=== PATIENT | male | born 1995 | race Caucasian/White ===

== ENCOUNTER 2021-09-24 21:55 | Emergency (ER) | payer OTHER ==
[~2021-09-24] VITALS: Ht 180.3 cm; Wt 88.6 kg
[2021-09-24 22:02] VITALS: BP 131/72
[2021-09-24] MEDS ORDERED: AMOX1TAB16 PO (22:46)
== END 2021-09-24 23:24 | disposition home or self-care (01) ==
LOC: EMS 21:58
DX: S91.352A Open bite, left foot, initial encounter (principal); Z91.013 Allergy to seafood; W54.0XXA Bitten by dog, initial encounter; Y93.89 Activity, other specified; Y92.89 Other specified places as the place of occurrence of the external cause; Y99.8 Other external cause status
CPT/HCPCS: 99283